=== PATIENT | female | born 1985 | race Caucasian/White ===

== ENCOUNTER 2016-12-13 11:54 | Emergency (ER) | payer BC ==
[~2016-12-13] VITALS: Ht 175.3 cm; Wt 110.5 kg
[2016-12-13 12:24] LABS: HEMATOCRIT 44.5 % (36.0-46.0); MCH 29.8 PG (29.0-34.0); MCHC 33.9 G/DL (30.0-36.0); MCV 87.9 FL (83-99); MEAN PLAT.VOLUME 10.3 uM^3 (9.5-12.4); PLATELET COUNT 255 K/uL (156-360); RBC DIS.WIDTH-CV 11.7 % (11.8-14.6); RBC DIS.WIDTH-SD 37.4 % (39-53); RED BLOOD COUNT 5.06 M/uL (3.80-5.20); WHITE BLOOD COUNT 8.4 K/uL (4.1-10.2)
[2016-12-13 12:36] LABS: CHLORIDE 107 mEq/L (99-109); POTASSIUM 4.5 mEq/L (3.7-5.4); SODIUM 140 mEq/L (136-147)
[2016-12-13 12:38] LABS: GLUCOSE 115 mg/dL (70-99)
[2016-12-13 12:39] LABS: ANION GAP 7 MEQ/L (2-14)
[2016-12-13 12:40] LABS: TOTAL BILIRUBIN 0.7 mg/dL (0.0-1.0)
[2016-12-13 12:42] LABS: ALKALINE PHOSPHATASE 49 IU/L (3-129)
[2016-12-13 12:43] LABS: UREA NITROGEN (BUN) 10 mg/dL (9-23)
[2016-12-13 12:50] LABS: QUANTITATIVE HCG < 4.0 MIU/ML
[2016-12-13 12:51] LABS: GFR ESTIMATE (CALCULATED) > 59 mL/min/
[2016-12-13] MEDS ORDERED: KLONOPIN0.5 M1 PO (13:05)
[2016-12-13] MEDS ORDERED: ZOLOFT100 MG PO (13:05)
[2016-12-13 14:37] LABS: ADD MIUA? YES; BILIRUBIN NEGATIVE; BLOOD NEGATIVE; COLOR YELLOW ((YELLOW)); GLUCOSE (STRIP) NEGATIVE; KETONES 5; LEUKOCYTES NEGATIVE; NITRITE NEGATIVE; PROTEIN (STRIP) 30; SPECIFIC GRAVITY 1.021 (1.000-1.030); UROBILINOGEN 0.2 MG/DL (0.2-1.0)
[2016-12-13 14:38] LABS: BACTERIA NONE SEEN /HPF; EPITHELIAL CELLS RARE /HPF; MUCUS TRACE /LPF; RED BLOOD CELLS 0-5 /HPF (0-5); UCUL ADDED? NO; WHITE BLOOD CELLS 0-5 /HPF (0-5)
[2016-12-13 14:49] LABS: PHENCYCLIDINE NEGATIVE (25 ng/mL); THC CANNABINOIDS NEGATIVE (50 ng/mL)
[2016-12-13 14:50] LABS: AMPHETAMINE NEGATIVE (500 ng/mL); BARBITURATES NEGATIVE (200 ng/mL); BENZODIAZEPINES NEGATIVE (150 ng/mL); COCAINE NEGATIVE (150 ng/mL); INTERNAL CONTROLS VALID? YES; METHADONE NEGATIVE (200 ng/mL); METHAMPHETAMINE NEGATIVE (500 ng/mL); OPIATES (MORPHINE) NEGATIVE (100 ng/mL); OXYCODONE NEGATIVE (100 ng/mL); PROPOXYPHENE NEGATIVE (300 ng/mL); TRICYCLIC ANTIDEPRESSANTS NEGATIVE (300 ng/mL)
[2016-12-13] MEDS ORDERED: ZOFRAN ODT4 MG PO (14:53)
[2016-12-13 15:44] VITALS: BP 122/76
== END 2016-12-13 15:54 | disposition home or self-care (01) ==
LOC: EME 11:54
PROVIDERS: Physician Assistant
DX: R11.2 Nausea with vomiting, unspecified (principal); R42 Dizziness and giddiness; R51 Headache
CPT/HCPCS: 80053; 81003; 84702; 85027; 99281; 99285; J2405; J7030